=== PATIENT | female | born 1950 | race Caucasian/White ===

== ENCOUNTER → 2018-06-29 | Outpatient (CLI) | payer MEDICARE | END | disposition home or self-care (01) | LOC: OIH 16:11 | PROVIDERS: ATTEND Family Medicine | DX: S22.32XA Fracture of one rib, left side, initial encounter for closed fracture (principal); X58.XXXA Exposure to other specified factors, initial encounter; Y93.89 Activity, other specified; Y92.89 Other specified places as the place of occurrence of the external cause; Y99.8 Other external cause status | CPT/HCPCS: 71100 ==

== ENCOUNTER → 2024-04-04 | Outpatient (CLI) | payer MEDICARE ==
[~2024-04-04] MED LIST: ADAL40KI SQ; ALEN70TA80 PO; APIX5TAB PO; CHOL500051 PO; FOLIC ACID PO; GABA-531 PO; HYDR-4060 PO; HYDR25TA PO; LISI10TA24 PO; METH2.5T6 PO; PANT40TA55 PO; PREDNISONE 4 MG
== END | disposition home or self-care (01) ==
LOC: RAH 09:04
PROVIDERS: ATTEND Internal Medicine Gastroenterology
DX: R13.11 Dysphagia, oral phase (principal); R63.30 Feeding difficulties, unspecified
CPT/HCPCS: 74230; 92611

== ENCOUNTER → 2024-04-06 | Outpatient (CLI) | payer MEDICARE | END | disposition home or self-care (01) | LOC: RAH 08:59 | PROVIDERS: ATTEND Internal Medicine Gastroenterology | DX: K21.9 Gastro-esophageal reflux disease without esophagitis (principal); R13.10 Dysphagia, unspecified; R12 Heartburn | CPT/HCPCS: 74240 ==

== ENCOUNTER 2024-05-05 08:46 | Inpatient (IN) | payer MEDICARE ==
[~2024-05-05] VITALS: Ht 152.4 cm; Wt 59.1 kg
[2024-05-05] MEDS: MORPHINE 2 MG SYG IVP ONE ×2 (09:22→16:07)
[2024-05-05] MEDS: ONDANSETRON 4MG INJ IVP ONE (09:22)
[2024-05-05] MEDS ORDERED: PRED1TAB PO (10:16)
[2024-05-05] MEDS ORDERED: RIVA20TA PO (10:21)
[2024-05-05] MEDS ORDERED: LEFL20TA22 PO (10:22)
[2024-05-05] MEDS ORDERED: LOSA25TA41 PO (10:23)
[2024-05-05] MEDS ORDERED: METF-444 PO (10:24)
[2024-05-05] MEDS ORDERED: SITA100T12 PO (10:24)
[2024-05-05] MEDS ORDERED: DULO30CA52 PO (10:26)
[2024-05-05 11:40] LABS: BASOPHILS # (AUTO) 0.07 K/uL (0.00-0.20); BASOPHILS % (AUTO) 0.6 % (0.0-5.0); EOSINOPHILS # (AUTO) 0.11 K/uL (0.00-0.70); HEMATOCRIT 29.4 % (36-48); IMMATURE GRANULOCYTE ABSOLUTE 0.16 K/uL (0-1); LYMPHOCYTES # (AUTO) 1.9 K/uL (1.0-4.8); LYMPHOCYTES % (AUTO) 16.9 % (21.0-51.0); MEAN CORPUSCULAR HEMOGLOBIN 28.5 pg (27.0-33.0); MEAN CORPUSCULAR HGB CONC 30.6 g/dL (32.0-36.0); MONOCYTES # (AUTO) 2.2 K/uL (0.1-1.0); MONOCYTES % (AUTO) 19.2 % (3.0-13.0); NEUTROPHILS # (AUTO) 6.9 K/uL (1.8-7.7); NEUTROPHILS % (AUTO) 60.9 % (40.0-77.0); PLATELET COUNT (AUTO) 273 K/uL (130-400); RED BLOOD CELL COUNT(AUTO) 3.16 MIL/uL (4.00-5.50); RED CELL DISTRIBUTION WIDTH 15.9 % (11.0-15.5); WHITE BLOOD COUNT (AUTO) 11.3 K/uL (4.8-10.8)
[2024-05-05 11:50] LABS: CREATININE 1.2 mg/dL (0.5-1.0); POTASSIUM 3.9 mmol/L (3.5-5.1)
[2024-05-05] MEDS: Solu-medROL 125MG VIAL IVP ONE (12:18)
[2024-05-05 16:30] LABS: HEMOGLOBIN A1C 5.6 % (4.0-6.0)
[2024-05-05] MEDS ORDERED: acetaMINOPHEN 500 MG TABLET PO PRN (16:30)
[2024-05-05 16:32] LABS: INR 1.05 (0.85-1.15); PROTHROMBIN TIME 11.3 SEC (9.6-11.6)
[2024-05-05 16:33] LABS: PARTIAL THROMBOPLASTIN TIME 25.1 SEC (26.3-35.5)
[2024-05-05 16:43] LABS: THYROID STIMULATING HORMONE 0.47 uIU/mL (0.36-3.74)
[2024-05-05 17:07] LABS: APPEARANCE,URINE CLEAR (CLEAR); BILIRUBIN,URINE NEGATIVE (NEGATIVE); COLOR,URINE COLORLESS (YELLOW); GLUCOSE, URINE (UA) 500 mg/dL (NEGATIVE); KETONES,URINE 10 mg/dL (NEGATIVE); LEUKOCYTE ESTERASE ,URINE NEGATIVE Leu/uL (NEGATIVE); NITRATE,URINE NEGATIVE (NEGATIVE); OCCULT BLOOD,URINE SMALL (NEGATIVE); PH,URINE 5.5 (5.0-8.0); PROTEIN,URINE 20 mg/dL (NEGATIVE); UROBILINOGEN,URINE 0.2 mg/dL (0.2-1.0)
[2024-05-05 17:13] LABS: ADD UA MICROSCOPIC YES
[2024-05-05 17:16] LABS: BACTERIA,URINE RARE /HPF (None Seen); MUCUS,URINE RARE LPF (None Seen); SQUAMOUS EPITHELIAL CELL,UR RARE /HPF (0-2)
[2024-05-05] MEDS: 0.9%NACL 1000ML 1,000 ML IV ONE (19:16)
[2024-05-05] MEDS: LoSARTan 25 MG TABLET PO ONE (19:16)
[2024-05-05] MEDS ORDERED: FAMOTIDINE 20MG VIAL IV SCH (21:00)
[2024-05-05] MEDS: PREDNISONE 1 MG TAB PO SCH (22:06)
[2024-05-05 23:28] VITALS: BP 150/92; PULSE 113; RESP 18
[2024-05-05] MEDS ORDERED: METO25 PO (23:39)
[2024-05-06] VITALS (8 sets, daily range): BP systolic 147–164; BP diastolic 89–100; PULSE 107–117; RESP 15–20; O2SAT 96–98
[2024-05-06] MEDS: MORPHINE 2 MG SYG IVP PRN (00:13)
[2024-05-06 07:04] LABS: BASOPHILS # (AUTO) 0.02 K/uL (0.00-0.20); BASOPHILS % (AUTO) 0.2 % (0.0-5.0); EOSINOPHILS # (AUTO) 0.05 K/uL (0.00-0.70); EOSINOPHILS % (AUTO) 0.5 % (0.0-8.0); HEMATOCRIT 24.7 % (36-48); IMMATURE GRANULOCYTE ABSOLUTE 0.12 K/uL (0-1); LYMPHOCYTES % (AUTO) 10.2 % (21.0-51.0); MEAN CORPUSCULAR HEMOGLOBIN 28.5 pg (27.0-33.0); MEAN CORPUSCULAR HGB CONC 31.6 g/dL (32.0-36.0); MEAN CORPUSCULAR VOLUME 90.1 fL (79-99); MONOCYTES # (AUTO) 1.4 K/uL (0.1-1.0); MONOCYTES % (AUTO) 13.8 % (3.0-13.0); NEUTROPHILS # (AUTO) 7.5 K/uL (1.8-7.7); NEUTROPHILS % (AUTO) 74.1 % (40.0-77.0); PLATELET COUNT (AUTO) 228 K/uL (130-400); RED BLOOD CELL COUNT(AUTO) 2.74 MIL/uL (4.00-5.50); RED CELL DISTRIBUTION WIDTH 15.8 % (11.0-15.5); WHITE BLOOD COUNT (AUTO) 10.1 K/uL (4.8-10.8)
[2024-05-06 07:37] LABS: CREATININE 1.1 mg/dL (0.5-1.0); POTASSIUM 3.5 mmol/L (3.5-5.1)
[2024-05-06] MEDS: LoSARTan 25 MG TABLET PO SCH (09:33)
[2024-05-06] MEDS: RIVAROXABAN 20 MG TABLET PO SCH (09:33)
[2024-05-06] MEDS: FOLic ACID 1 MG TABLET PO SCH (09:33)
[2024-05-06] MEDS: PANTOPRAZOLE 40 MG TAB DR PO SCH (09:34)
[2024-05-06] MEDS: HYDROcodone/APAP 5/325 1 TAB TABLET PO PRN (09:51)
[2024-05-06] MEDS: METOPROLOL TARTRATE 25 MG TAB PO SCH (20:23)
[2024-05-06] MEDS: INSULIN humuLIN R 100 UNIT/ML 3ML SQ SCH (22:09)
[2024-05-07] VITALS (8 sets, daily range): BP systolic 138–167; BP diastolic 69–93; PULSE 75–106; RESP 16–20; O2SAT 95–98
[2024-05-07] MEDS ORDERED: POTASSIUM CHLORIDE 10MEQ/100ML 100 ML IV PRN
[2024-05-07] MEDS ORDERED: POTASSIUM CHLORIDE 10% ELIXIR 20 MEQ/15 ML UDCUP PO PRN
[2024-05-07] MEDS: KCL 20 MEQ ERTAB PO PRN (00:31)
[2024-05-07 05:06] LABS: BASOPHILS # (AUTO) 0.02 K/uL (0.00-0.20); BASOPHILS % (AUTO) 0.2 % (0.0-5.0); EOSINOPHILS # (AUTO) 0.01 K/uL (0.00-0.70); EOSINOPHILS % (AUTO) 0.1 % (0.0-8.0); HEMATOCRIT 22.1 % (36-48); IMMATURE GRANULOCYTE ABSOLUTE 0.09 K/uL (0-1); LYMPHOCYTES # (AUTO) 1.4 K/uL (1.0-4.8); LYMPHOCYTES % (AUTO) 16.1 % (21.0-51.0); MEAN CORPUSCULAR HGB CONC 32.1 g/dL (32.0-36.0); MEAN CORPUSCULAR VOLUME 90.2 fL (79-99); MONOCYTES # (AUTO) 1.4 K/uL (0.1-1.0); NEUTROPHILS # (AUTO) 5.7 K/uL (1.8-7.7); NEUTROPHILS % (AUTO) 66.6 % (40.0-77.0); PLATELET COUNT (AUTO) 200 K/uL (130-400); RED BLOOD CELL COUNT(AUTO) 2.45 MIL/uL (4.00-5.50); RED CELL DISTRIBUTION WIDTH 15.9 % (11.0-15.5); WHITE BLOOD COUNT (AUTO) 8.6 K/uL (4.8-10.8)
[2024-05-07 05:26] LABS: ALBUMIN 2.2 g/dL (3.5-5.0); ASPARTATE AMINOTRANSFERASE 10 U/L (10-37); BILIRUBIN,TOTAL 0.6 mg/dL (0.2-1.0); CARBON DIOXIDE 25 mmol/L (21-32); CHLORIDE 110 mmol/L (101-111); GLOMERULAR FILTR. RATE CALC 59 mL/min (>90); GLUCOSE,RANDOM 101 mg/dL (70-105); POTASSIUM 3.7 mmol/L (3.5-5.1); SODIUM SERUM 143 mmol/L (136-145); TOTAL PROTEIN, SERUM 5.3 g/dL (6.0-8.3); UREA NITROGEN, BLOOD 16 mg/dL (7-18)
[2024-05-07 05:35] LABS: ALANINE AMINOTRANSFERASE < 6 U/L (12-78)
[2024-05-07] MEDS: duloXETine HCL 30 MG CAP PO SCH (09:37)
[2024-05-07] MEDS: MAGNESIUM 2GM PREMIX 50ML 50 ML IV ONE (16:06)
[2024-05-07] MEDS: MAGNESIUM 2GM PREMIX 50ML 50 ML IV PRN (16:06)
[2024-05-08] VITALS: BP 189/94; PULSE 76; RESP 16
[2024-05-08] MEDS: hydrALAZine 20MG/ML VIAL IV PRN (02:28)
[2024-05-08 04:00] VITALS: BP 140/90; PULSE 109; RESP 18
[2024-05-08 05:54] VITALS: BP 140/90
[2024-05-08 08:00] VITALS: BP 141/89; PULSE 103; RESP 18; O2SAT 95
[2024-05-08 10:34] LABS: INR 1.24 (0.85-1.15); PROTHROMBIN TIME 13.2 SEC (9.6-11.6)
[2024-05-08 12:00] VITALS: BP 110/72; PULSE 72; RESP 16
[2024-05-08 16:00] VITALS: BP 157/63; PULSE 74; RESP 16
== END 2024-05-08 17:50 | DRG 558 ==
LOC: EDH 08:46 → EDHIP 16:04 → 4DH 23:33
PROVIDERS: ADMIT Internal Medicine; ATTEND Internal Medicine
DX: M70.51 Other bursitis of knee, right knee (principal); E87.0 Hyperosmolality and hypernatremia; N17.9 Acute kidney failure, unspecified; S80.01XA Contusion of right knee, initial encounter; D64.9 Anemia, unspecified; M06.9 Rheumatoid arthritis, unspecified; E11.22 Type 2 diabetes mellitus with diabetic chronic kidney disease; I12.9 Hypertensive chronic kidney disease with stage 1 through stage 4 chronic kidney disease, or unspecified chronic kidney disease; N18.9 Chronic kidney disease, unspecified; W18.39XA Other fall on same level, initial encounter; D72.829 Elevated white blood cell count, unspecified; Z79.52 Long term (current) use of systemic steroids; Z86.718 Personal history of other venous thrombosis and embolism; Z86.711 Personal history of pulmonary embolism; Z79.01 Long term (current) use of anticoagulants; Y93.89 Activity, other specified; Y92.89 Other specified places as the place of occurrence of the external cause
CPT/HCPCS: 36415; 70460; 71045; 72125; 72170; 73564; 73700; 80048; 80053; 81001; 82948; 83036; 83735; 84145; 84443; 85025; 85610; 85730; 86140; 96374; 96375; G0378; J0360; J1815; J2270; J2405; J2919; J3475; J7512